=== PATIENT | male | born 1955 | race Caucasian/White ===

== ENCOUNTER 2017-10-04 05:20 | Inpatient (IN) | payer MEDICARE, OTHER ==
[2017-10-04] MEDS ORDERED: LABETALOL 5 MG/ML VIAL MDV IVP STA ×3 (05:38→09:26)
[2017-10-04 05:51] LABS: Basophils # (A) 0.1 k/uL (0-0.2); Basophils % (A) 1 %; CH 29.6; CHCM 35.6; Eosinophils # (A) 0.1 k/uL (0-0.7); Eosinophils % (A) 1 %; HCT 46.2 % (39.0-53.0); HDW 2.79; HGB 15.8 gm/dL (13.0-17.5); Luc # (Auto) 0.13; Luc % (Auto) 2; Lymphocytes # (A) 1.3 k/uL (1.0-4.8); Lymphocytes % (A) 17 %; MCH 28.5 pg (25.0-35.0); MCHC 34.2 g/dL (31.0-37.0); MCV 83.6 fL (80.0-100.0); Mean Platelet Volume 9.7; Monocytes # (A) 0.4 k/uL (0-1.0); Monocytes % (A) 5 %; Neutrophils # (A) 5.5 k/uL (1.3-7.7); Neutrophils % (A) 74 %; RBC 5.53 m/uL (4.30-5.90); RDW 14.1 % (11.5-15.5); WBC 7.4 k/uL (3.8-10.6); WBC (Perox) 7.44
[2017-10-04 06:02] LABS: Appearance,Urine Clear (Clear); Bilirubin,Urine Negative (Negative); Glucose,Urine (UA) 4+ (Negative); Ketones,Urine Trace (Negative); Leukocyte Esterase,Urine Negative (Negative); Nitrite,Urine Negative (Negative); Particle Count 210; Protein,Urine 2+ (Negative); RBC,Urine 2 /hpf (0-5); Specific Gravity,Urine 1.005 (1.001-1.035); UA Billing (MACRO vs. MICRO) MICRO; Urobilinogen,Urine <2.0 mg/dL (<2.0)
[2017-10-04 06:08] LABS: ALT 27 U/L (21-72); AST 20 U/L (17-59); Alkaline Phosphatase 110 U/L (38-126); Anion Gap 13 mmol/L; Blood Urea Nitrogen 14 mg/dL (9-20); Calcium 9.1 mg/dL (8.4-10.2); Carbon Dioxide 23 mmol/L (22-30); Chloride 103 mmol/L (98-107); Glucose 250 mg/dL (74-99); Non-African American GFR(MDRD) >60 (>60 ml/min/1.73 sqM); Sodium 139 mmol/L (137-145); Total Bilirubin 1.2 mg/dL (0.2-1.3); Total Protein 7.8 g/dL (6.3-8.2)
--- NOTE | 2017-10-04 06:12 | XR ---
EXAM: XR Chest, 1 View CLINICAL HISTORY: Reason: altered mental status TECHNIQUE: Frontal view of the chest. COMPARISON: None FINDINGS: Lungs: No focal consolidation. Question small pulmonary nodules within both lungs the largest within the left upper lobe measuring 2 mm. Pleural space: Unremarkable. No pneumothorax. Heart: Mild tonsillar cardiomediastinal silhouette. No cardiomegaly. Mediastinum: Unremarkable. Bones/joints: Unremarkable. IMPRESSION: Normal chest x-ray.
--- NOTE | 2017-10-04 06:21 | CT ---
EXAM: CT Head Without Intravenous Contrast CLINICAL HISTORY: Reason: Neuro Deficits TECHNIQUE: Axial computed tomography images of the head/brain without intravenous contrast. CTDI is 60.3 mGy and DLP is 1011 mGy-cm. This CT exam was performed using one or more of the following dose reduction techniques: automated exposure control, adjustment of the mA and/or kV according to patient size, and/or use of iterative reconstruction technique. COMPARISON: None FINDINGS: Brain: No acute intraparenchymal hemorrhage No acute territorial infarct Fuller-white matter differentiation is maintained Mild periventricular and subcortical microangiopathic white matter change Posterior fossa is normal No edema. Ventricles: Unremarkable. No ventriculomegaly. Bones/joints: No calvarial trauma No acute fracture. Soft tissues: No soft tissue abnormality Vasculature: Vasculature is normal at the skull base Sinuses: Sinuses are clear. Mastoid air cells: Mastoid air cells are clear. Auditory system: Internal and external auditory canals are patent IMPRESSION: No acute findings.
[2017-10-04] MEDS ORDERED: INSULIN REGULAR 100 UNIT/ML VIAL SQ STA (06:33)
--- NOTE | 2017-10-04 07:09 | ED ---
Neuro HPI - General Chief Complaint: Neuro Symptoms/Deficit Stated Complaint: Numbness Time Seen by Provider: 10/04/17 05:38 Source: patient, EMS Mode of arrival: EMS Limitations: no limitations - History of Present Illness Is the patient presenting with stroke symptoms?: Yes Last Known Well Date: 10/02/17 Onset/Timin -: days(s) Initial Comments: This patient is a 62-year-old man who presents with feeling of numbness to his face, to his right hand, and a feeling like his speech is not right. The patient states that the first symptoms started 2 days ago and were involving his right thumb. The patient states that yesterday he started having numbness of the upper lip, he states that this is involving both sides of the lip. Over the course the past night he believes that his speech is been funny though he has a difficult time fully characterize this. The patient relates that he has history of hypertension but states that he had a falling out with his doctor and as a consequence has not been taking any medication for this for probably around 2 months. Patient denies other symptoms. Location: left face, right face, right arm History of same: No Place: home Severity: mild Quality: numb Improves With: none Worsens With: none Context: gradual onset Associated Symptoms: denies other symptoms Treatments Prior to Arrival: none - Related Data Home Medications: Previous Rx's Medication Instructions Recorded Aspirin 325 mg PO DAILY #30 tab 10/06/17 Lisinopril-Hctz 20-12.5 mg 1 each PO DAILY #30 tab 10/06/17 [Zestoretic 20-12.5] glipiZIDE [Glucotrol] 2.5 mg PO AC-BID #60 tab 10/06/17 Metoprolol Succinate (ER) [Toprol 25 mg PO DAILY #30 tab 10/07/17 XL] Allergies/Adverse Reactions: Allergies Allergy/AdvReac Type Severity Reaction Status Date / Time No Known Allergies Allergy Verified 10/04/17 07:54 Review of Systems ROS Statement: Those systems with pertinent positive or pertinent negative responses have been documented in the HPI. ROS Other: All systems not noted in ROS Statement are negative. Constitutional: Denies: fever, chills, weakness Eyes: Denies: eye pain, vision change Respiratory: Denies: cough, dyspnea Cardiovascular: Denies: chest pain, palpitations, orthopnea, syncope Gastrointestinal: Denies: abdominal pain, vomiting, diarrhea Musculoskeletal: Denies: back pain Skin: Denies: rash Neurological: Reports: as per HPI, numbness. Denies: headache, weakness, paresthesias, confusion, abnormal gait General Exam Limitations: no limitations General appearance: alert, in no apparent distress Head exam: Present: atraumatic, normocephalic, normal inspection Eye exam: Present: normal appearance. Absent: scleral icterus, conjunctival injection ENT exam: Present: mucous membranes dry Neck exam: Present: normal inspection, full ROM Respiratory exam: Present: normal lung sounds bilaterally. Absent: respiratory distress, wheezes, rales, rhonchi, stridor Cardiovascular Exam: Present: regular rate, normal rhythm, normal heart sounds. Absent: systolic murmur, diastolic murmur, rubs, gallop GI/Abdominal exam: Present: soft. Absent: distended, tenderness, guarding, rebound Extremities exam: Present: normal inspection, normal capillary refill. Absent: pedal edema, calf tenderness Back exam: Present: normal inspection. Absent: CVA tenderness (R), CVA tenderness (L) Neurological exam: Present: alert, oriented X3, CN II-XII intact. Absent: motor sensory deficit Skin exam: Present: warm, dry, intact, normal color. Absent: rash Stroke MDM - Lab Data Result diagrams: 10/06/17 05:59 10/06/17 05:59 Lab Results 10/04/17 10/04/17 10/04/17 Range/Units 05:20 05:20 05:20 WBC 7.4 (3.8-10.6) k/uL RBC 5.53 (4.30-5.90) m/uL Hgb 15.8 (13.0-17.5) gm/dL Hct 46.2 (39.0-53.0) % MCV 83.6 (80.0-100.0) fL MCH 28.5 (25.0-35.0) pg MCHC 34.2 (31.0-37.0) g/dL RDW 14.1 (11.5-15.5) % Plt Count 171 (150-450) k/uL Neutrophils % 74 % Lymphocytes % 17 % Monocytes % 5 % Eosinophils % 1 % Basophils % 1 % Neutrophils # 5.5 (1.3-7.7) k/uL Lymphocytes # 1.3 (1.0-4.8) k/uL Monocytes # 0.4 (0-1.0) k/uL Eosinophils # 0.1 (0-0.7) k/uL Basophils # 0.1 (0-0.2) k/uL Sodium 139 (137-145) mmol/L Potassium 4.0 (3.5-5.1) mmol/L Chloride 103 (98-107) mmol/L Carbon Dioxide 23 (22-30) mmol/L Anion Gap 13 mmol/L BUN 14 (9-20) mg/dL Creatinine 1.12 (0.66-1.25) mg/dL Est GFR (MDRD) Af Amer >60 (>60 ml/min/1.73 sqM) Est GFR (MDRD) Non-Af >60 (>60 ml/min/1.73 sqM) Glucose 250 H (74-99) mg/dL POC Glucose (mg/dL) (75-99) mg/dL POC Glu [employer] ID Calcium 9.1 (8.4-10.2) mg/dL Total Bilirubin 1.2 (0.2-1.3) mg/dL AST 20 (17-59) U/L ALT 27 (21-72) U/L Alkaline Phosphatase 110 (38-126) U/L Troponin I 0.016 (0.000-0.034) ng/mL Total Protein 7.8 (6.3-8.2) g/dL Albumin 4.6 (3.5-5.0) g/dL Triglycerides (<150) mg/dL Cholesterol (<200) mg/dL LDL Cholesterol, Calc (0-99) mg/dL HDL Cholesterol (40-60) mg/dL Urine Color Urine Appearance (Clear) Urine pH (5.0-8.0) Ur Specific [place] (1.001-1.035) Urine Protein (Negative) Urine Glucose (UA) (Negative) Urine Ketones (Negative) Urine Blood (Negative) Urine Nitrite (Negative) Urine Bilirubin (Negative) Urine Urobilinogen (<2.0) mg/dL Ur Leukocyte Esterase (Negative) Urine RBC (0-5) /hpf 10/04/17 10/04/17 10/04/17 Range/Units 05:20 05:20 05:45 WBC (3.8-10.6) k/uL RBC (4.30-5.90) m/uL Hgb (13.0-17.5) gm/dL Hct (39.0-53.0) % MCV (80.0-100.0) fL MCH (25.0-35.0) pg MCHC (31.0-37.0) g/dL RDW (11.5-15.5) % Plt Count (150-450) k/uL Neutrophils % % Lymphocytes % % Monocytes % % Eosinophils % % Basophils % % Neutrophils # (1.3-7.7) k/uL Lymphocytes # (1.0-4.8) k/uL Monocytes # (0-1.0) k/uL Eosinophils # (0-0.7) k/uL Basophils # (0-0.2) k/uL Sodium (137-145) mmol/L Potassium (3.5-5.1) mmol/L Chloride (98-107) mmol/L Carbon Dioxide (22-30) mmol/L Anion Gap mmol/L BUN (9-20) mg/dL Creatinine (0.66-1.25) mg/dL Est GFR (MDRD) Af Amer (>60 ml/min/1.73 sqM) Est GFR (MDRD) Non-Af (>60 ml/min/1.73 sqM) Glucose (74-99) mg/dL POC Glucose (mg/dL) 242 H (75-99) mg/dL POC Glu [employer] ID Watt, [place] Calcium (8.4-10.2) mg/dL Total Bilirubin (0.2-1.3) mg/dL AST (17-59) U/L ALT (21-72) U/L Alkaline Phosphatase (38-126) U/L Troponin I (0.000-0.034) ng/mL Total Protein (6.3-8.2) g/dL Albumin (3.5-5.0) g/dL Triglycerides 118 (<150) mg/dL Cholesterol 209 H (<200) mg/dL LDL Cholesterol, Calc 148 H (0-99) mg/dL HDL Cholesterol 37 L (40-60) mg/dL Urine Color Light Yellow Urine Appearance Clear (Clear) Urine pH 7.0 (5.0-8.0) Ur Specific [place] 1.005 (1.001-1.035) Urine Protein 2+ H (Negative) Urine Glucose (UA) 4+ H (Negative) Urine Ketones Trace H (Negative) Urine Blood Trace H (Negative) Urine Nitrite Negative (Negative) Urine Bilirubin Negative (Negative) Urine Urobilinogen <2.0 (<2.0) mg/dL Ur Leukocyte Esterase Negative (Negative) Urine RBC 2 (0-5) /hpf - Thrombolytic Inclusion/Exclusion Thrombolytic Exclusion Criteria: Symptom Onset > 3 Hours - EKG Data EKG shows normal: sinus rhythm, axis (Left axis deviation), intervals (Normal) Rate: tachycardia (Rate approximately 107 bpm) Interpretation: nonspecific ST-T wave changes, other (Possible old inferior infarct. With Q waves in 3 and aVF) Past Medical History Past Medical History: CVA/TIA, Diabetes Mellitus, Hypertension, Myocardial Infarction ([place]) History of Any Multi-Drug Resistant Organisms: None Reported Past Surgical History: Adenoidectomy, Heart Catheterization, Heart Catheterization With Stent Past Psychological History: No Psychological Hx Reported Smoking Status: Never smoker Past Alcohol Use History: None Reported Past Drug Use History: None Reported, Marijuana - Past Family History Father Family Medical History: Diabetes Mellitus Additional Family Medical History / Comment(s): Father at the age of 69yrs from diabetic complications. He was a juvenille diabetic. Mother Family Medical History: Hypertension Additional Family Medical History / Comment(s): Mother at the age of 73 yrs. Course Vital Signs 10/04/17 10/04/17 10/04/17 05:21 06:02 06:43 Temperature 97.8 F Pulse Rate 112 H 102 H 86 Respiratory 18 18 18 Rate Blood Pressure 220/124 204/118 186/98 O2 Sat by Pulse 94 L 98 98 Oximetry 10/04/17 10/04/17 10/04/17 07:23 07:44 08:32 Temperature Pulse Rate 89 86 84 Respiratory 16 16 Rate Blood Pressure 208/81 199/106 200/108 O2 Sat by Pulse 97 97 Oximetry 10/04/17 10/04/17 10/04/17 09:22 09:31 10:08 Temperature 98.7 F Pulse Rate 90 92 89 Respiratory 16 16 Rate Blood Pressure 199/95 166/83 175/86 O2 Sat by Pulse 97 97 Oximetry 10/04/17 10:49 Temperature 98.6 F Pulse Rate 93 Respiratory 16 Rate Blood Pressure 168/90 O2 Sat by Pulse 97 Oximetry Disposition Clinical Impression: Hypertensive encephalopathy, Hyperglycemia Disposition: ADMITTED IP TO THIS HOSP Condition: Fair
[2017-10-04] MEDS ORDERED: ASPIRIN 325 MG TAB PO STA (07:12)
[2017-10-04 07:19] LABS: Glucose,Whole Blood 242 mg/dL (75-99)
[2017-10-04] MEDS ORDERED: LABETALOL SYRINGE 5 MG/ML IVP STA (09:14)
[2017-10-04] MEDS ORDERED: hydrALAZINE HCL 20 MG/ML 1 ML VIAL IVP STA (09:14)
[2017-10-04] MEDS: FAMOTIDINE 20 MG TAB PO SCH ×2 (09:19→20:56)
--- NOTE | 2017-10-04 10:43 | US ---
EXAMINATION TYPE: US carotid duplex BILAT DATE OF EXAM: 10/04/2017 COMPARISON: NONE CLINICAL HISTORY: Stenosis. lip and right finger numbness, h/o stroke EXAM MEASUREMENTS: RIGHT: Peak Systolic Velocity (PSV) cm/sec ----- Right CCA: 75.3 ----- Right ICA: 55.7 ----- Right ECA: 143.2 ICA/CCA ratio: 0.7 RIGHT: End Diastole cm/sec ----- Right CCA: 21.2 ----- Right ICA: 19.5 ----- Right ECA: 15.1 LEFT: Peak Systolic Velocity (PSV) cm/sec ----- Left CCA: 44.9 ----- Left ICA: 48.0 ----- Left ECA: 107.0 ICA/CCA ratio: 1.1 LEFT: End Diastole cm/sec ----- Left CCA: 10.8 ----- Left ICA: 17.4 ----- Left ECA: 16.4 VERTEBRALS (direction of flow): Right Vertebral: Antegrade Left Vertebral: Antegrade Rhythm: Normal Mild homogeneous plaque with no significant stenosis seen Grayscale, color Doppler, spectral Doppler imaging performed of the carotid arteries. IMPRESSION: No hemodynamic significant stenosis of the proximal internal carotid arteries bilaterall y by Doppler criteria, an indirect measurement of carotid stenosis
[2017-10-04 11:42] LABS: Glucose,Whole Blood 199 mg/dL (75-99)
--- NOTE | 2017-10-04 12:09 | ECHOF ---
Referral Reason:Thrombus MEASUREMENTS -------- HEIGHT: 172.7 cm WEIGHT: 87.5 kg BP: 190/100 RVIDd: 2.6 cm (< 3.3) IVSd: 1.2 cm (0.6 - 1.1) LVIDd: 4.9 cm (3.9 - 5.3) LVPWd: 1.6 cm (0.6 - 1.1) IVSs: 1.3 cm LVIDs: 4.6 cm LVPWs: 1.5 cm LA Diam: 3.3 cm (2.7 - 3.8) LAESV Index (A-L): 31.30 ml/m Ao Diam: 3.7 cm (2.0 - 3.7) AV Cusp: 1.5 cm (1.5 - 2.6) LA Diam: 3.7 cm (2.7 - 3.8) MV EXCURSION: 17.007 mm (> 18.000) MV EF SLOPE: 95 mm/s (70 - 150) EPSS: 2.3 cm MV E Salvatore: 0.41 m/s MV DecT: 180 ms MV A Salvatore: 1.09 m/s MV E/A Ratio: 0.38 RAP: 5.00 mmHg RVSP: 28.25 mmHg FINDINGS -------- Sinus rhythm. This was a technically adequate study. The left ventricular size is normal. There is mild concentric left ventricular hypertrophy. Overa ll left ventricular systolic function is moderately impaired with, an EF between 35 - 40 %. Basal i nferior LV wall motion is hypokinetic. Basal inferoseptal LV wall motion is hypokinetic. Mid in ferior LV wall motion is hypokinetic. Mid inferoseptal LV wall motion is hypokinetic. Apical in ferior LV wall motion is hypokinetic. The right ventricle is normal in size. LA is midly dilated 29-33ml/m2. The right atrial size is normal. The aortic valve is trileaflet, and appears structurally normal. No aortic stenosis or regurgitation. The mitral valve is normal. Mild mitral regurgitation is present. Mild tricuspid regurgitation present. There is no evidence of pulmonary hypertension. The right v entricular systolic pressure, as measured by Doppler, is 28.25mmHg. Trace/mild (physiologic) pulmonic regurgitation. The aortic root size is normal. There is no pericardial effusion. CONCLUSIONS -------- 1. Sinus rhythm. 2. There is mild concentric left ventricular hypertrophy. 3. Overall left ventricular systolic function is moderately impaired with, an EF between 35 - 40 %. 4. Basal inferior LV wall motion is hypokinetic. 5. Basal inferoseptal LV wall motion is hypokinetic. 6. Mid inferior LV wall motion is hypokinetic. 7. Mid inferoseptal LV wall motion is hypokinetic. 8. Apical inferior LV wall motion is hypokinetic. 9. LA is midly dilated 29-33ml/m2. 10. The aortic valve is trileaflet, and appears structurally normal. No aortic stenosis or regurgitat ion. 11. Mild mitral regurgitation is present. 12. Mild tricuspid regurgitation present. 13. There is no evidence of pulmonary hypertension. 14. Trace/mild (physiologic) pulmonic regurgitation. 15. The aortic root size is normal. 16. There is no pericardial effusion. [employer] SERV[employer]TE MANAGER: Jennifer Jarrell RDCS
[2017-10-04] MEDS: LISINOPRIL-HCTZ 20-12.5 MG 1 EACH TAB PO SCH (12:29)
[2017-10-04] MEDS ORDERED: INSULIN LISPRO (humaLOG) 300 UNIT/3 ML VIAL SQ SCH (12:30)
--- NOTE | 2017-10-04 15:50 | P.HPIM ---
History of Present Illness H&P Date: 10/04/17 Patient is a 62-year-old male with a known history of hypertension, diabetes type 2, history of coronary disease status post and placement and history of CVA 3 years back with residual left hand fingertip numbness and occasional vertigo came to the hospital with complaints of feeling of numbness to his face to his right hand and feeling like his speech is not right and also is unable to write properly. Patient says that his symptoms started 2 days ago initially involving right thumb. Patient also felt numbness of the upper lip. Patient is having slurry speech and difficulty to characterize words and is getting worse which made him come to the hospital. Patient does have history of hypertension diabetes mellitus and has not been taking any medications. Patient says that he got depressed up to the stroke and has not been following with his doctors. Patient otherwise denied any fever or chills. No headache.. No nausea vomiting or abdominal pain. Otherwise patient is denied any recent illnesses or sick contacts at home. Patient's blood pressure found to be 220 x 1 24 on admission with heart rate of 112. She was given IV hydralazine and IV labetalol in the ER. Patient was also hyperglycemic on admission. Review of Systems Constitutional: Patient denies any fever or chills . No generalized weakness or weight loss. Abdomen: Patient denied nausea vomiting and diarrhea and abdominal pain. Cardiovascular: Patient denies any chest pain or short of breath no palpitations. Respiratory: patient denied any cough is from production. No shortness of breath Neurologic: Patient is complaining of difficulty speaking and writing and numbness of the lip and,right thumb Musculoskeletal: Patient denies any complaints of joint swelling or deformity. Skin: Negative Psychiatric: Negative Endocrine: No heat or cold intolerance. No recent weight gain. Genitourinary: No dysuria or hematuria. All other 14 point ROS negative except the above Past Medical History Past Medical History: Coronary Artery Disease (CAD), CVA/TIA, Diabetes Mellitus , Hypertension, Myocardial Infarction ([place]) Additional Past Medical History / Comment(s): CVA x 2 has some L hand fingertip numbness and occasional vertigo as residual-happened while in [place] 6-7 yrs ago , pt states "I have only 1/3 of my heart working,"-was seeing center customer service associate in [facility] but not seen him "in quite awhile.", diet controlled diabetes. Last Myocardial Infarction Date:: 2006? History of Any Multi-Drug Resistant Organisms: None Reported Past Surgical History: Adenoidectomy, Heart Catheterization, Heart Catheterization With Stent Past Anesthesia/Blood Transfusion Reactions: No Reported Reaction Date of Last Stent Placement:: 2006? pt not certain Smoking Status: Never smoker - Past Family History Father Family Medical History: Diabetes Mellitus Additional Family Medical History / Comment(s): Father at the age of 69yrs from diabetic complications. He was a juvenille diabetic. Mother Family Medical History: Hypertension Additional Family Medical History / Comment(s): Mother at the age of 73 yrs. Medications and Allergies Home Medications Medication Instructions Recorded Confirmed Type No Known Home Medications [No 10/04/17 10/04/17 History Known Home Medications] Allergies Allergy/AdvReac Type Severity Reaction Status Date / Time No Known Allergies Allergy Verified 10/04/17 07:54 Physical Exam Vitals: Vital Signs Temp Pulse Pulse Resp BP BP Pulse Ox 10/04/17 11:00 98.5 F 93 18 180/102 95 10/04/17 10:49 98.6 F 93 16 168/90 97 10/04/17 10:08 89 16 175/86 97 10/04/17 09:31 92 166/83 10/04/17 09:22 98.7 F 90 16 199/95 97 10/04/17 08:32 84 16 200/108 97 10/04/17 07:44 86 199/106 10/04/17 07:23 89 16 208/81 97 10/04/17 06:43 86 18 186/98 98 10/04/17 06:02 102 H 18 204/118 98 10/04/17 05:21 97.8 F 112 H 18 220/124 94 L Intake and Output 10/03/17 10/04/17 10/04/17 22:59 06:59 14:59 Intake Total 240 Balance 240 Intake: Oral 240 Other: Weight 87.543 kg PHYSICAL EXAMINATION: Patient is lying in the bed comfortably, no acute distress, awake alert and oriented.. Mild confusion HEENT: Normocephalic. Neck is supple. Pupils reactive. Nostrils clear. Oral cavity is moist. Ears reveal no drainage. Neck reveals no JVD, carotid bruits, or thyromegaly. CHEST EXAMINATION: Trachea is central. Symmetrical expansion. Lung deleon clear to auscultation and percussion. CARDIAC: Normal S1, S2 with no gallops. No murmurs ABDOMEN: Soft. Bowel sounds normal. No organomegaly. No abdominal bruits. Extremities: reveal no edema. No clubbing or cyanosis Neurologically awake, alert, oriented x3. able to move all extremities. No motor deficit Skin: No rash or skin lesions. Psychiatric: Cooperative. Nonsuicidal Musculoskeletal: No joint swelling or deformity. Normal range of motion. Results CBC & Chem 7: 10/04/17 05:20 10/04/17 05:20 Labs: Abnormal Lab Results - Last 24 Hours (Table) 10/04/17 10/04/17 10/04/17 Range/Units 05:20 05:20 05:45 Glucose 250 H (74-99) mg/dL POC Glucose (mg/dL) 242 H (75-99) mg/dL Urine Protein 2+ H (Negative) Urine Glucose (UA) 4+ H (Negative) Urine Ketones Trace H (Negative) Urine Blood Trace H (Negative) 10/04/17 Range/Units 11:30 Glucose (74-99) mg/dL POC Glucose (mg/dL) 199 H (75-99) mg/dL Urine Protein (Negative) Urine Glucose (UA) (Negative) Urine Ketones (Negative) Urine Blood (Negative) Thrombosis Risk Factor Assmnt - Choose All That Apply Any of the Below Risk Factors Present?: Yes Each Factor Represents 1 point: Obesity (BMI >25) Other Risk Factors: Yes Each Risk Factor Represents 2 Points: Age 61-74 years Other congenital or acquired thrombophilia - If yes, enter type in comment: No Thrombosis Risk Factor Assessment Total Risk Factor Score: 3 Thrombosis Risk Factor Assessment Level: Moderate Risk Assessment and Plan Assessment: #1 facial numbness and right hand numbness and difficulty speech likely due to hypertensive encephalopathy. Possible new CVA #2 hypertensive emergency on admission #3 history of CVA with left-sided thumb numbness and mild weakness #4 hypertension and diabetes type 2 not taking any medications #4 noncompliance with medications #5 hyperglycemia with uncontrolled diabetes mellitus #7 history of coronary artery disease status post stent placement. #8 chronic CHF. As per patient. Ejection fraction unknown. Plan: Patient will be started on aspirin. Also added hydrochlorothiazide and lisinopril combination. Continue with neuro checks and neurology evaluation. Check his B A1c and follow up closely. Insulin dosing and CBG. Further recommendations based on the clinical course. Patient had CT head done in the ER and also carotid duplex. Will check 2-D echocardiogram. Discussed with his family at bedside in detail. Time with Patient: Greater than 30
[2017-10-04 16:32] LABS: Glucose,Whole Blood 234 mg/dL (75-99)
[2017-10-04] MEDS: INSULIN ASPART 100 UNIT/ML 1 ML 10 ML VIAL SQ SCH ×2 (17:05→20:57)
--- NOTE | 2017-10-04 19:25 | P.CNNES ---
History of Present Illness Consult date: 10/04/17 History of Present Illness: The patient is a 62-year-old right-handed male who has a history of stroke 5 years ago. He reports that at that time he had left-sided weakness. He reports that yesterday he developed perioral numbness and some right hand loss of coordination. He thought he may have been having a stroke. He also experience loss of balance this morning when he woke up at 5 AM so he was brought to the hospital with these complaints. Apparently the patient has not been taking his medications for the last few years because he did not have the insurance. The patient had an elevated blood pressure of 220/124 on admission. The patient had been on Plavix several years ago after cardiac stent but stopped taking that as well when he lost his insurance. Patient denies any symptoms currently and states he's feels like he is back to his baseline. He denied any focal weakness numbness or visual complaint. He was admitted to the hospital with hypertensive emergency. Review of Systems Constitutional: Denies chills, Denies fever Eyes: denies blurred vision, denies pain Cardiovascular: Denies chest pain, Denies shortness of breath Respiratory: Denies cough Musculoskeletal: Denies myalgias Neurological: Denies numbness, Denies weakness Psychiatric: Denies anxiety, Denies depression Past Medical History Past Medical History: Coronary Artery Disease (CAD), CVA/TIA, Diabetes Mellitus , Hypertension, Myocardial Infarction ([place]) Additional Past Medical History / Comment(s): CVA x 2 has some L hand fingertip numbness and occasional vertigo as residual-happened while in [place] 6-7 yrs ago , pt states "I have only 1/3 of my heart working,"-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 Last Myocardial Infarction Date:: 2006? History of Any Multi-Drug Resistant Organisms: None Reported Past Surgical History: Adenoidectomy, Heart Catheterization, Heart Catheterization With Stent Past Anesthesia/Blood Transfusion Reactions: No Reported Reaction Date of Last Stent Placement:: 2006? pt not certain Smoking Status: Never smoker - Past Family History Father Family Medical History: Diabetes Mellitus Additional Family Medical History / Comment(s): Father at the age of 69yrs from diabetic complications. He was a juvenille diabetic. Mother Family Medical History: Hypertension Additional Family Medical History / Comment(s): Mother at the age of 73 yrs. Medications and Allergies Home Medications Medication Instructions Recorded Confirmed Type No Known Home Medications [No 10/04/17 10/04/17 History Known Home Medications] Allergies Allergy/AdvReac Type Severity Reaction Status Date / Time No Known Allergies Allergy Verified 10/04/17 07:54 Physical Examination - Vital Signs Vital Signs: Vital Signs Temp Pulse Pulse Resp BP BP Pulse Ox 10/04/17 15:40 99.2 F 98 18 155/104 97 10/04/17 11:00 98.5 F 93 18 180/102 95 10/04/17 10:49 98.6 F 93 16 168/90 97 10/04/17 10:08 89 16 175/86 97 10/04/17 09:31 92 166/83 10/04/17 09:22 98.7 F 90 16 199/95 97 10/04/17 08:32 84 16 200/108 97 10/04/17 07:44 86 199/106 10/04/17 07:23 89 16 208/81 97 10/04/17 06:43 86 18 186/98 98 10/04/17 06:02 102 H 18 204/118 98 10/04/17 05:21 97.8 F 112 H 18 220/124 94 L Intake and Output 10/04/17 10/04/17 10/04/17 06:59 14:59 22:59 Intake Total 480 240 Output Total 300 Balance 480 -60 Intake: Oral 480 240 Output: Urine 300 Other: # Voids 0 0 # Bowel Movements 0 Weight 87.543 kg - Constitutional General appearance: cooperative - EENT EENT: PERRL, hearing intact, vision intact - Respiratory Respiratory: lungs clear - Cardiovascular Cardiovascular: regular rate, normal S1 - Neurologic Cranial nerve examination: PERRL, EOMI, VFF, face symmetric, tongue midline Speech examination: intact Detailed motor examination: grossly full strength in all extremities Detailed sensory examination: intact - Psychiatric Psychiatric: mood/affect appropriate Results - Laboratory Findings CBC and BMP: 10/04/17 05:20 10/04/17 05:20 Abnormal Lab Findings: Abnormal Labs 10/04/17 10/04/17 10/04/17 05:20 05:20 05:45 Glucose 250 H POC Glucose (mg/dL) 242 H Urine Protein 2+ H Urine Glucose (UA) 4+ H Urine Ketones Trace H Urine Blood Trace H 10/04/17 10/04/17 11:30 16:26 Glucose POC Glucose (mg/dL) 199 H 234 H Urine Protein Urine Glucose (UA) Urine Ketones Urine Blood Assessment and Plan (1) TIA (transient ischemic attack) Current Visit: Yes Status: Acute SNOMED Code(s): 799797358 (2) Hypertensive encephalopathy Current Visit: Yes Status: Acute SNOMED Code(s): 87677498 Plan: The patient is a 62-year-old man admitted to the hospital with hypertensive emergency. He has a history of previous stroke with left-sided weakness. He presents now with new right sided symptoms which was transient. He reports that he is back to his baseline now. He has not been taking his medications for 3 years due to loss of insurance. Apparently the patient had been on Plavix in the past and stopped taking it. His son reports that he was placed on this medication after having cardiac stent placed. has had a carotid ultrasound which did not show any significant stenosis. He had an echo, echocardiogram which was unremarkable. Recommend restarting patient on Plavix or aspirin therapy.
[2017-10-04 20:56] LABS: Glucose,Whole Blood 249 mg/dL (75-99)
[2017-10-04] MEDS: HEPARIN SODIUM,PORCINE 5,000 UNIT/ML 1 ML VIAL SQ SCH (20:56)
[2017-10-04 22:27] LABS: Cholesterol 209 mg/dL (<200); HDL Cholesterol 37 mg/dL (40-60)
[2017-10-05 06:08] LABS: Glucose,Whole Blood 224 mg/dL (75-99)
[2017-10-05] MEDS: INSULIN ASPART 100 UNIT/ML 1 ML 10 ML VIAL SQ SCH ×4 (06:13→21:56)
[2017-10-05] MEDS: ASPIRIN 325 MG TAB PO SCH (09:01)
[2017-10-05] MEDS: LISINOPRIL-HCTZ 20-12.5 MG 1 EACH TAB PO SCH (09:01)
[2017-10-05] MEDS: FAMOTIDINE 20 MG TAB PO SCH ×2 (09:01→20:04)
[2017-10-05] MEDS: HEPARIN SODIUM,PORCINE 5,000 UNIT/ML 1 ML VIAL SQ SCH ×2 (09:02→20:04)
[2017-10-05 11:44] LABS: Glucose,Whole Blood 227 mg/dL (75-99)
[2017-10-05] MEDS: amLODIPine 5 MG TAB PO SCH (12:01)
--- NOTE | 2017-10-05 12:13 | CDI ---
In responding to this query, please exercise your independent professional judgment. The [facility] Coding Staff and Clinical Documentation Specialists appreciate your assistance in clarifying documentation, maintaining compliance with coding guidelines, accurately documenting patients condition and capturing severity of illness. The fact that a question is asked does not imply that any particular answer is desired or expected. Communication forms are a method of clarifying documentation and are not made part of the Legal Health Record. Thank you in advance for your clarification. Last Revision, January 2017 Kaci Franks [address] [facility] [place] [address] Documentation Clarification Form Date: 10/05/2017 12:06:00 PM From: Neisha Mckoy RN, CCDS Admit Date: 10/04/2017 7:13:00 AM Patient Name: Amilcar Hinojosa Visit Number: [id number] Dr. Maribel Frederick CHF is documented in the H&P . History/Risk Factors: HTN emergency, HTN encephalopathy, noncompliance with medications, DM2 Clinical Indicators: 10/04 H&P:"chronic CHF. As per patient. Ejection fraction unknown." VS/Pulse OX: Temp 97.8, hr 112, RR 18, B/P 220/124, spo2 94% RA BNP: not done 10/04 Echocardiogram Results: EF 35-40% Chest X Ray:- Treatment: Zestoretic 20/12.5 PO QD In your professional opinion, can you please clarify the acuity and type of CHF if known? Systolic Heart Failure: Acute Chronic Acute on Chronic Diastolic Heart Failure: Acute Chronic Acute on Chronic Systolic & Diastolic Heart Failure: Acute Chronic Acute on Chronic Unable to determine Other, please specify Please document in your progress notes and discharge summary in order to capture severity of illness and risk of mortality. Include clinical findings that support your diagnosis. FYI: Press F11 to launch patient chart. RACHELE
[2017-10-05 16:50] LABS: Glucose,Whole Blood 181 mg/dL (75-99)
[2017-10-05 21:18] LABS: Glucose,Whole Blood 166 mg/dL (75-99)
--- NOTE | 2017-10-05 23:32 | P.PN ---
Subjective Progress Note Date: 10/05/17 Principal diagnosis: Hypertensive encephalopathy Patient is a 62-year-old male with a known history of hypertension, diabetes type 2, history of coronary disease status post and placement and history of CVA 3 years back with residual left hand fingertip numbness and occasional vertigo came to the hospital with complaints of feeling of numbness to his face to his right hand and feeling like his speech is not right and also is unable to write properly. Patient says that his symptoms started 2 days ago initially involving right thumb. Patient also felt numbness of the upper lip. Patient is having slurry speech and difficulty to characterize words and is getting worse which made him come to the hospital. Patient does have history of hypertension diabetes mellitus and has not been taking any medications. Patient says that he got depressed up to the stroke and has not been following with his doctors. Patient otherwise denied any fever or chills. No headache.. No nausea vomiting or abdominal pain. Otherwise patient is denied any recent illnesses or sick contacts at home. Patient's blood pressure found to be 220 x 1 24 on admission with heart rate of 112. She was given IV hydralazine and IV labetalol in the ER. Patient was also hyperglycemic on admission. 10/05/2017 Patient is more awake and oriented today. Blood pressure is fairly controlled. Patient will be started on glipizide 2.5 mg twice a day and follow-up insulin sliding scale. Patient does not want to take metformin saying that it makes him have diarrhea. Otherwise patient denied any right-sided weakness or numbness. Patient is able to swallow without any difficulty. 2-D echo showed a complex 35%. No other acute overnight issues. No fever no chills. No chest pain or short of breath no nausea vomiting or abdominal pain. All other review of systems negative except above current medications reviewed Objective - Vital Signs Vital signs: Vital Signs Temp 97.6 F 10/05/17 16:00 Pulse 91 10/05/17 16:00 Resp 18 10/05/17 16:00 BP 165/111 10/05/17 16:00 Pulse Ox 97 10/05/17 20:03 Intake & Output 10/05/17 10/05/17 10/06/17 06:59 18:59 06:59 Intake Total 480 Balance 480 Weight 83 kg Intake: Oral 480 Other: Voiding Method Toilet # Voids 1 400 # Bowel Movements 0 - Exam Patient is lying in the bed comfortably, no acute distress, awake alert and oriented.. Mild confusion HEENT: Normocephalic. Neck is supple. Pupils reactive. Nostrils clear. Oral cavity is moist. Ears reveal no drainage. Neck reveals no JVD, carotid bruits, or thyromegaly. CHEST EXAMINATION: Trachea is central. Symmetrical expansion. Lung deleon clear to auscultation and percussion. CARDIAC: Normal S1, S2 with no gallops. No murmurs ABDOMEN: Soft. Bowel sounds normal. No organomegaly. No abdominal bruits. Extremities: reveal no edema. No clubbing or cyanosis Neurologically awake, alert, oriented x3. able to move all extremities. No motor deficit Skin: No rash or skin lesions. Psychiatric: Cooperative. Nonsuicidal Musculoskeletal: No joint swelling or deformity. Normal range of motion. - Labs CBC & Chem 7: 10/04/17 05:20 10/04/17 05:20 Labs: Abnormal Lab Results - Last 24 Hours (Table) 10/04/17 10/04/17 10/05/17 Range/Units 05:20 16:57 06:06 POC Glucose (mg/dL) 224 H (75-99) mg/dL Hemoglobin A1c 8.8 H (4.0-6.0) % Cholesterol 209 H (<200) mg/dL LDL Cholesterol, Calc 148 H (0-99) mg/dL HDL Cholesterol 37 L (40-60) mg/dL 10/05/17 10/05/17 10/05/17 Range/Units 11:26 16:38 21:00 POC Glucose (mg/dL) 227 H 181 H 166 H (75-99) mg/dL Hemoglobin A1c (4.0-6.0) % Cholesterol (<200) mg/dL LDL Cholesterol, Calc (0-99) mg/dL HDL Cholesterol (40-60) mg/dL Assessment and Plan Assessment: #1 facial numbness and right hand numbness and difficulty speech likely due to hypertensive encephalopathy. Possible new TIA/CVA #2 hypertensive emergency on admission #3 history of CVA with left-sided thumb numbness and mild weakness #4 hypertension and diabetes type 2 not taking any medications #4 noncompliance with medications #5 hyperglycemia with uncontrolled diabetes mellitus #7 history of coronary artery disease status post stent placement. #8 chronic CHF with systolic dysfunction ejection fraction 35% Plan: Patient was started on aspirin. Continue with hydrochlorothiazide and lisinopril combination and add Norvasc. Continue with neuro checks and neurology evaluation. Check his B A1c 8.8 Insulin dosing and CBG. Further recommendations based on the clinical course. Patient had CT head done in the ER and also carotid duplex. Ejection fraction 35% as per 2-D echocardiogram. Discussed with his family at bedside in detail. Time with Patient: Greater than 30
[2017-10-06 06:18] LABS: Glucose,Whole Blood 183 mg/dL (75-99)
[2017-10-06 06:20] LABS: Basophils % (A) 1 %; CH 29.8; CHCM 34.9; Eosinophils # (A) 0.1 k/uL (0-0.7); Eosinophils % (A) 2 %; HCT 46.3 % (39.0-53.0); HDW 2.74; HGB 15.7 gm/dL (13.0-17.5); Luc % (Auto) 2; Lymphocytes # (A) 1.5 k/uL (1.0-4.8); Lymphocytes % (A) 23 %; MCHC 33.9 g/dL (31.0-37.0); MCV 85.7 fL (80.0-100.0); Mean Platelet Volume 9.9; Monocytes # (A) 0.4 k/uL (0-1.0); Monocytes % (A) 6 %; Neutrophils # (A) 4.3 k/uL (1.3-7.7); Neutrophils % (A) 67 %; RBC 5.41 m/uL (4.30-5.90); RDW 14.7 % (11.5-15.5); WBC 6.4 k/uL (3.8-10.6); WBC (Perox) 6.25
[2017-10-06 06:35] LABS: Anion Gap 11 mmol/L; Blood Urea Nitrogen 23 mg/dL (9-20); Calcium 9.5 mg/dL (8.4-10.2); Carbon Dioxide 23 mmol/L (22-30); Chloride 104 mmol/L (98-107); Glucose 206 mg/dL (74-99); Non-African American GFR(MDRD) 56 (>60 ml/min/1.73 sqM); Sodium 138 mmol/L (137-145)
[2017-10-06] MEDS: INSULIN ASPART 100 UNIT/ML 1 ML 10 ML VIAL SQ SCH ×2 (06:51→12:24)
[2017-10-06] MEDS: LISINOPRIL-HCTZ 20-12.5 MG 1 EACH TAB PO SCH (07:43)
[2017-10-06] MEDS: FAMOTIDINE 20 MG TAB PO SCH (07:43)
[2017-10-06] MEDS: ASPIRIN 325 MG TAB PO SCH (07:43)
[2017-10-06] MEDS: amLODIPine 5 MG TAB PO SCH (07:44)
[2017-10-06] MEDS: HEPARIN SODIUM,PORCINE 5,000 UNIT/ML 1 ML VIAL SQ SCH (07:44)
[2017-10-06 09:31] VITALS: TEMP 97.8
[2017-10-06] MEDS ORDERED: INFLUENZA VACCINE (6 MOS+) 60 MCG/0.5 ML SYRINGE IM ONE (11:13)
[2017-10-06 11:30] LABS: Glucose,Whole Blood 241 mg/dL (75-99)
[2017-10-06 15:04] VITALS: BP 166/104; PULSE 105; RESP 16
--- NOTE | 2017-10-07 00:19 | P.DS ---
Providers Date of admission: 10/04/17 07:13 Expected date of discharge: 10/06/17 Attending physician: Lele Mitchell Consults: 10/04/17 07:14 Consult Physician Routine Consulting Provider: Frannie Frey Consult Reason/Comments: mental status change Do you want consulting provider notified?: Yes Primary care physician: Stated None Hospital Course: Discharge diagnosis #1 facial numbness and right hand numbness and difficulty speech likely due to hypertensive encephalopathy. Possible TIA #2 hypertensive emergency on admission #3 history of CVA with left-sided thumb numbness and mild weakness #4 hypertension and diabetes type 2 not taking any medications #4 noncompliance with medications #5 hyperglycemia with uncontrolled diabetes mellitus #7 history of coronary artery disease status post stent placement. #8 chronic CHF with systolic dysfunction ejection fraction 35% Hospital course Patient is a 62-year-old male with a known history of hypertension, diabetes type 2, history of coronary disease status post stent placement and history of CVA 3 years back with residual left hand fingertip numbness and occasional vertigo came to the hospital with complaints of feeling of numbness to his face to his right hand and feeling like his speech is not right and also is unable to write properly. Patient says that his symptoms started 2 days ago initially involving right thumb. Patient also felt numbness of the upper lip. Patient is having slurry speech and difficulty to characterize words and is getting worse which made him come to the hospital. Patient does have history of hypertension diabetes mellitus and has not been taking any medications. Patient says that he got depressed up to the stroke and has not been following with his doctors. Patient otherwise denied any fever or chills. No headache.. No nausea vomiting or abdominal pain. Otherwise patient is denied any recent illnesses or sick contacts at home. Patient's blood pressure found to be 220 x 1 24 on admission with heart rate of 112. She was given IV hydralazine and IV labetalol in the ER. Patient was also hyperglycemic on admission. 10/05/2017 Patient is more awake and oriented today. Blood pressure is fairly controlled. Patient will be started on glipizide 2.5 mg twice a day and follow-up insulin sliding scale. Patient does not want to take metformin saying that it makes him have diarrhea. Otherwise patient denied any right-sided weakness or numbness. Patient is able to swallow without any difficulty. 2-D echo showed a complex 35%. 10/06/2017 Patient's blood pressure is fairly controlled today. No acute overnight issues. Patient will be continued on glipizide. Patient is also on hydrochlorothiazide and lisinopril. We will add metoprolol with History of CHF and coronary disease. Numbness of the hand and tingling sensation resolved now Patient was advised to be compliant with his medications and follow with his primary care physician. Patient was started on aspirin. Continue with hydrochlorothiazide and lisinopril combination and add metoprolol.. Continued with neuro checks and neurology evaluation. his B A1c 8.8 Insulin dosing and CBG. Patient does not want to start on insulin. Patient also says that he did not tolerate metformin before and does not want to try it . Patient was started on glipizide. Patient had CT head done in the ER and also carotid duplex. Negative studies. Ejection fraction 35% as per 2-D echocardiogram Discharge physical examination Patient is lying in the bed comfortably, no acute distress, awake alert and oriented.. HEENT: Normocephalic. Neck is supple. Pupils reactive. Nostrils clear. Oral cavity is moist. Ears reveal no drainage. Neck reveals no JVD, carotid bruits, or thyromegaly. CHEST EXAMINATION: Trachea is central. Symmetrical expansion. Lung deleon clear to auscultation and percussion. CARDIAC: Normal S1, S2 with no gallops. No murmurs ABDOMEN: Soft. Bowel sounds normal. No organomegaly. No abdominal bruits. Extremities: reveal no edema. No clubbing or cyanosis Neurologically awake, alert, oriented x3 with well-coordinated movements. No focal deficits noted Skin: No rash or skin lesions. Psychiatric: Operative. Nonsuicidal Musculoskeletal: No joint swelling or deformity. Normal range of motion. Total time taken greater than 35 minutes including 18 minutes for counseling and coordination of care. Patient Condition at Discharge: Fair Plan - Discharge Summary Discharge Rx Participant: No New Discharge Prescriptions: New Aspirin 325 mg PO DAILY #30 tab glipiZIDE [Glucotrol] 2.5 mg PO AC-BID #60 tab Lisinopril-Hctz 20-12.5 mg [Zestoretic 20-12.5] 1 each PO DAILY #30 tab Metoprolol Succinate (ER) [Toprol XL] 25 mg PO DAILY #30 tab Discharge Medication List Aspirin 325 mg PO DAILY #30 tab 10/06/17 [Rx] Lisinopril-Hctz 20-12.5 mg [Zestoretic 20-12.5] 1 each PO DAILY #30 tab [Rx] glipiZIDE [Glucotrol] 2.5 mg PO AC-BID #60 tab 10/06/17 [Rx] Metoprolol Succinate (ER) [Toprol XL] 25 mg PO DAILY #30 tab 10/07/17 [Rx] Follow up Appointment(s)/Referral(s): Christ Ortiz MD [REFERRING] - 1 Week (Office is closed. Please call to make appointment) Patient Instructions/Handouts: Hypertension (DC) Discharge Disposition: HOME SELF-CARE
== END 2017-10-06 16:07 | disposition home or self-care (01) | DRG 305 ==
LOC: EC 05:20 → 6SEL 07:13
PROVIDERS: ADMIT Hospitalist; ATTEND Hospitalist
DX: I16.1 Hypertensive emergency (principal); I67.4 Hypertensive encephalopathy; I50.22 Chronic systolic (congestive) heart failure; E11.65 Type 2 diabetes mellitus with hyperglycemia; I11.0 Hypertensive heart disease with heart failure; R53.1 Weakness; I25.10 Atherosclerotic heart disease of native coronary artery without angina pectoris; T38.3X6A Underdosing of insulin and oral hypoglycemic [antidiabetic] drugs, initial encounter; T46.4X6A Underdosing of angiotensin-converting-enzyme inhibitors, initial encounter; Z83.3 Family history of diabetes mellitus; Z82.49 Family history of ischemic heart disease and other diseases of the circulatory system; Z95.5 Presence of coronary angioplasty implant and graft; Z90.49 Acquired absence of other specified parts of digestive tract; I25.2 Old myocardial infarction; Z86.73 Personal history of transient ischemic attack (TIA), and cerebral infarction without residual deficits
CPT/HCPCS: 36415; 70450; 71010; 80048; 80053; 80061; 81001; 83036; 84484; 85025; 90686; 93005; 93306; 93880; 94760; 96374; 96375; 96376; 99285